=== PATIENT | female | born 1940 | race Caucasian/White ===

== ENCOUNTER → 2016-10-06 | Outpatient (CLI) | payer MEDICARE, OTHER | LOC: RAD 09:02 | PROVIDERS: ATTEND Physician Assistant | DX: M51.36 Other intervertebral disc degeneration, lumbar region (principal); G89.4 Chronic pain syndrome | CPT/HCPCS: 78306; A9503; Q9969 ==

== ENCOUNTER 2017-05-18 10:46 | Emergency (ER) | payer MEDICARE, OTHER ==
[2017-05-18] MEDS ORDERED: VERAPAMIL HCL 80 MG TABLET PO ONE (11:39)
--- NOTE | 2017-05-18 11:45 | ER Document Report ---
ED Medical Screen (RME) - General Chief Complaint: Palpitations Stated Complaint: ABNORMAL LABS Time Seen by Provider: 05/18/17 11:05 Mode of Arrival: Ambulatory Information source: Patient TRAVEL OUTSIDE OF THE [place] IN LAST 30 DAYS: No - HPI Patient complains to provider of: Palpitations since a change in her prescription. Onset: Other - Palpitations for 2 weeks since a change in her prescription. Worse the past 2 days. Onset/Duration: Gradual Quality of pain: No pain Exacerbated by: denies: Denies, Supine, Sitting, Standing, Movement, Walking, Coughing, Deep breathing, Food, Other Relieved by: denies: Denies, Supine, Sitting, Standing, Remaining still, Antacids, Food, Other Similar symptoms previously: Yes - Related Data Smoking: Non-smoker Frequency of alcohol use: None Allergies/Adverse Reactions: lidocaine [Lidocaine] Allergy (Severe, Verified 05/18/17 10:48) IV only causes an unknown severe reaction disopyramide phosphate [From Norpace] Allergy (Unknown, Verified 05/18/17 10:48) Unknown reaction acetaminophen [From Tylenol] Allergy (Verified 05/18/17 10:48) azithromycin [Azithromycin] Allergy (Verified 05/18/17 10:48) diphenhydramine HCl [From Benadryl] Allergy (Verified 05/18/17 10:48) erythromycin base [Erythromycin Base] Allergy (Verified 05/18/17 10:48) quinidine Allergy (Verified 05/18/17 10:48) Sulfa (Sulfonamide Antibiotics) Allergy (Verified 05/18/17 10:48) simvastatin [Simvastatin] Adverse Reaction (Mild, Verified 05/18/17 10:48) elev lft's; myopathy Past Medical History - Social History Cigarette use (# per day): No Chew tobacco use (# tins/day): No Frequency of alcohol use: None Drug Abuse: None - Past Medical History Cardiac Medical History: Reports: Hx Atrial Fibrillation, Hx Hypercholesterolemia Denies: Hx Coronary Artery Disease, Hx Heart Attack, Hx Hypertension Pulmonary Medical History: Denies: Hx Asthma, Hx Bronchitis, Hx COPD, Hx Pneumonia Neurological Medical History: Denies: Hx Cerebrovascular Accident, Hx Seizures Renal/ Medical History: Denies: Hx Peritoneal Dialysis GI Medical History: Reports: Hx Gastroesophageal Reflux Disease, Hx Hepatitis - c, Hx Colonoscopy Musculoskeltal Medical History: Reports Hx Arthritis - Osteo, Reports Hx Musculoskeletal Deformity, Reports Hx Musculoskeletal Trauma Psychiatric Medical History: Reports: Hx Anxiety Traumatic Medical History: Reports: Hx Fractures, Hx Spine Fracture - low back Infectious Medical History: Reports: Hx Hepatitis - c Past Surgical History: Reports: Hx Appendectomy, Hx Cardiac Catheterization, Hx Inguinal Hernia, Hx Orthopedic Surgery - left elbow fx, bilat feet fx - Immunizations Immunizations up to date: Yes Hx Diphtheria, Pertussis, Tetanus Vaccination: No History of Influenza Vaccine for 05/2017 - 10/2017 Season: No Review of Systems - Review of Systems Notes: Constitutional: [PRESENT: as per HPI. ABSENT: chills, fever(s), headache(s), weight gain, weight loss] Eyes: [ABSENT: visual disturbances] Ears: [ABSENT: hearing changes] Cardiovascular: [ABSENT: chest pain, dyspnea on exertion, edema, orthropnea] positive for palpitations. See HPI Respiratory: [ABSENT: cough, hemoptysis] Gastrointestinal: [ABSENT: abdominal pain, constipation, diarrhea, hematemesis, hematochezia, nausea, vomiting] Genitourinary: [ABSENT: dysuria, hematuria] Musculoskeletal: [ABSENT: joint swelling] Integumentary: [ABSENT: rash, wounds] Neurological: [ABSENT: abnormal gait, abnormal speech, confusion, dizziness, focal weakness, syncope] Psychiatric: [ABSENT: anxiety, depression, homicidal ideation, suicidal ideation ] Endocrine: [ABSENT: cold intolerance, heat intolerance, menstrual abnormalities , polydipsia, polyuria] Hematologic/Lymphatic: [ABSENT: easy bleeding, easy bruising, lymphadenopathy] Cardiovascular: See HPI, Palpitations - See HPI Physical Exam - Vital signs Vitals: Temp Pulse Resp BP Pulse Ox 98.1 F 119 H 16 147/71 H 99 05/18/17 10:52 05/18/17 10:52 05/18/17 10:52 05/18/17 10:52 05/18/17 10:52 - Notes Notes: PHYSICAL EXAMINATION: GENERAL: Well-appearing, well-nourished and in no acute distress. HEAD: Atraumatic, normocephalic. ENT: Nares patent, oropharynx clear without exudates. Moist mucous membranes. NECK: Normal range of motion, supple without lymphadenopathy LUNGS: Breath sounds clear to auscultation bilaterally and equal. No wheezes rales or rhonchi. HEART: Tachycardic at a rate of 120. ABDOMEN: Soft, nontender, nondistended abdomen. No guarding, no rebound. No masses appreciated. Musculoskeletal: Normal range of motion, no pitting or edema. No cyanosis. NEUROLOGICAL: Cranial nerves grossly intact. Normal speech, normal gait. Normal sensory, motor exams PSYCH: Normal mood, normal affect. SKIN: Warm, Dry, no rashes or lesions noted. Course - Vital Signs Vital signs: Temp Pulse Resp BP Pulse Ox 98.1 F 119 H 16 147/71 H 99 05/18/17 10:52 05/18/17 10:52 05/18/17 10:52 05/18/17 10:52 05/18/17 10:52 - EKG Interpretation by Mt Rate: Tachycardia - Sinus tachycardia at a rate of 113 with a sinus arrhythmia.
[2017-05-18 12:25] LABS: ABSOLUTE BASOPHILS # (AUTO) 0.1 10^3/uL (0.0-0.2); ABSOLUTE LYMPHOCYTES (AUTO) 1.2 10^3/uL (0.5-4.7); ABSOLUTE MONOCYTES (AUTO) 0.5 10^3/uL (0.1-1.4); ABSOLUTE NEUT (AUTO) 4.8 10^3/uL (1.7-8.2); BASOPHILS % (AUTO) 0.8 % (0-2); EOSINOPHILS % (AUTO) 0.7 % (0-6); HEMATOCRIT 39.4 % (36.0-47.0); HEMOGLOBIN 13.5 g/dL (12.0-15.5); HGB HCT DIFFERENCE 1.1; LYMPHOCYTES % (AUTO) 18.6 % (13-45); MEAN CORPUSCULAR HEMOGLOBIN 34.5 pg (27.0-33.4); MEAN CORPUSCULAR HGB CONC 34.4 g/dL (32.0-36.0); MEAN CORPUSCULAR VOLUME 100 fl (80-97); MONOCYTES % (AUTO) 7.3 % (3-13); RED BLOOD COUNT 3.93 10^6/uL (3.72-5.28); RED CELL DISTRIBUTION WIDTH 12.9 % (11.5-14.0); SEGMENTED NEUTROPHILS % (AUTO) 72.6 % (42-78); WHITE BLOOD COUNT 6.7 10^3/uL (4.0-10.5)
[2017-05-18 12:45] LABS: ALANINE AMINOTRANSFERASE 37 U/L (9-52); ALBUMIN 4.3 g/dL (3.5-5.0); ALKALINE PHOSPHATASE 79 U/L (38-126); ANION GAP 16 (5-19); ASPARTATE AMINO TRANSFERASE 38 U/L (14-36); BILIRUBIN,DIRECT 0.4 mg/dL (0.0-0.4); BILIRUBIN,TOTAL 0.8 mg/dL (0.2-1.3); BLOOD UREA NITROGEN 10 mg/dL (7-20); CALCIUM 9.5 mg/dL (8.4-10.2); CARBON DIOXIDE 23 mmol/L (22-30); CHLORIDE 101 mmol/L (98-107); CREATININE RESULT 0.67 mg/dL (0.52-1.25); GLUCOSE 113 mg/dL (75-110); POTASSIUM 4.2 mmol/L (3.6-5.0); SODIUM 139.5 mmol/L (137-145); TOTAL PROTEIN 7.7 g/dL (6.3-8.2)
--- NOTE | 2017-05-18 12:55 | EKG REPORT ---
SEVERITY:- BORDERLINE ECG - FAST SINUS ARRHYTHMIA, RATE 93-[address] DEPRESSION, ANTEROLATERAL LEADS : Confirmed by: Thien Sharpe MD 18-May-2017 12:54:32
--- NOTE | 2017-05-18 14:38 | ER Document Report ---
ED Cardiac - General Chief Complaint: Palpitations Stated Complaint: ABNORMAL LABS Time Seen by Provider: 05/18/17 11:05 Mode of Arrival: Ambulatory Information source: Patient TRAVEL OUTSIDE OF THE [place] IN LAST 30 DAYS: No - HPI Patient complains to provider of: Palpitations Was the onset of pain: Sudden Is the pain a: Chronic problem Quality of pain: None Associated symptoms: Palpitations Similar symptoms previously: Yes Notes: Patient is a 76-year-old female with a history of paroxysmal atrial fibrillation presenting to the emergency room today complaining of palpitations which have been increasing in frequency and duration over the past week, she does report when she recently filled her prescription for Rythmol she got the generic version as the name brand is no longer available and she is concerned that this is possibly why she is having increased episodes of palpitations, she denies any chest pain or shortness of breath associated with them, she has a note from her window dresser which requests that she be given a dose of verapamil 40 mg prior to any other medications, which she got in the triage area and her heart rate is now in the 70 range and she reports feeling much better - Related Data Allergies/Adverse Reactions: lidocaine [Lidocaine] Allergy (Severe, Verified 05/18/17 10:48) IV only causes an unknown severe reaction disopyramide phosphate [From Norpace] Allergy (Unknown, Verified 05/18/17 10:48) Unknown reaction acetaminophen [From Tylenol] Allergy (Verified 05/18/17 10:48) azithromycin [Azithromycin] Allergy (Verified 05/18/17 10:48) diphenhydramine HCl [From Benadryl] Allergy (Verified 05/18/17 10:48) erythromycin base [Erythromycin Base] Allergy (Verified 05/18/17 10:48) quinidine Allergy (Verified 05/18/17 10:48) Sulfa (Sulfonamide Antibiotics) Allergy (Verified 05/18/17 10:48) simvastatin [Simvastatin] Adverse Reaction (Mild, Verified 05/18/17 10:48) elev lft's; myopathy Past Medical History - General Information source: Patient - Social History Smoking Status: Never Smoker Cigarette use (# per day): No Chew tobacco use (# tins/day): No Frequency of alcohol use: None Drug Abuse: None Family History: CAD, Hyperlipidemia, Hypertension - Past Medical History Cardiac Medical History: Reports: Hx Atrial Fibrillation, Hx Hypercholesterolemia Denies: Hx Coronary Artery Disease, Hx Heart Attack, Hx Hypertension Pulmonary Medical History: Denies: Hx Asthma, Hx Bronchitis, Hx COPD, Hx Pneumonia Neurological Medical History: Denies: Hx Cerebrovascular Accident, Hx Seizures Renal/ Medical History: Denies: Hx Peritoneal Dialysis GI Medical History: Reports: Hx Gastroesophageal Reflux Disease, Hx Hepatitis - c, Hx Colonoscopy Musculoskeltal Medical History: Reports Hx Arthritis - Osteo, Reports Hx Musculoskeletal Deformity, Reports Hx Musculoskeletal Trauma Psychiatric Medical History: Reports: Hx Anxiety Traumatic Medical History: Reports: Hx Fractures, Hx Spine Fracture - low back Infectious Medical History: Reports: Hx Hepatitis - c Past Surgical History: Reports: Hx Appendectomy, Hx Cardiac Catheterization, Hx Inguinal Hernia, Hx Orthopedic Surgery - left elbow fx, bilat feet fx - Immunizations Immunizations up to date: Yes Hx Diphtheria, Pertussis, Tetanus Vaccination: No Review of Systems - Review of Systems Constitutional: No symptoms reported EENT: No symptoms reported Cardiovascular: See HPI Respiratory: No symptoms reported Gastrointestinal: No symptoms reported Genitourinary: No symptoms reported Female Genitourinary: No symptoms reported Musculoskeletal: No symptoms reported Skin: No symptoms reported Hematologic/Lymphatic: No symptoms reported Neurological/Psychological: No symptoms reported -: Yes All other systems reviewed and negative Physical Exam - Vital signs Vitals: Temp Pulse Resp BP Pulse Ox 98.1 F 119 H 16 147/71 H 99 05/18/17 10:52 05/18/17 10:52 05/18/17 10:52 05/18/17 10:52 05/18/17 10:52 Interpretation: Normal - General General appearance: Appears well, Alert - HEENT Head: Normocephalic, Atraumatic Eyes: Normal Pupils: PERRL - Respiratory Respiratory status: No respiratory distress Chest status: Nontender Breath sounds: Normal Chest palpation: Normal - Cardiovascular Rhythm: Regular Heart sounds: Normal auscultation Murmur: No - Abdominal Inspection: Normal Distension: No distension Bowel sounds: Normal Tenderness: Nontender Organomegaly: No organomegaly - Back Back: Normal, Nontender - Extremities General upper extremity: Normal inspection, Nontender, Normal color, Normal ROM , Normal temperature General lower extremity: Normal inspection, Nontender, Normal color, Normal ROM , Normal temperature, Normal weight bearing. No: Fei's sign - Neurological Neuro grossly intact: Yes Cognition: Normal Orientation: AAOx4 [place] Coma Scale Eye Opening: Spontaneous [place] Coma Scale Verbal: Oriented [place] Coma Scale Motor: Obeys Commands [place] Coma Scale Total: 15 Speech: Normal Motor strength normal: LUE, RUE, LLE, RLE Sensory: Normal - Psychological Associated symptoms: Anxious - Skin Skin Temperature: Warm Skin Moisture: Dry Skin Color: Normal Course - Re-evaluation Re-evalutation: 05/18/17 14:38 Patient was discussed with Dr. Sanchez window dresser who recommends patient continue her current meds with the addition of verapamil 40 mg twice a day, he requests that patient call his office on Sunday to set up a follow-up appointment, this plan was discussed with patient at bedside who acknowledges understanding and agreement - Vital Signs Vital signs: Temp Pulse Resp BP Pulse Ox 98.1 F 119 H 20 147/71 H 97 05/18/17 10:52 05/18/17 10:52 05/18/17 14:02 05/18/17 10:52 05/18/17 14:02 - Laboratory Result Diagrams: 05/18/17 12:08 05/18/17 12:08 Laboratory results interpreted by me: 05/18/17 05/18/17 12:08 12:08 MCV 100 H MCH 34.5 H Plt Count 148 L Glucose 113 H AST 38 H - EKG Interpretation by [place] EKG shows normal: Sinus rhythm Rate: Tachycardia Rhythm: Arrthymia Additional EKG results interpreted by me: 05/18/17 15:10 Repeat EKG is normal sinus rhythm at a rate of 68 Discharge - Discharge Clinical Impression: Anxiety, Palpitations Atrial fibrillation Qualifiers: Atrial fibrillation type: paroxysmal Qualified Code(s): I48.0 - Paroxysmal atrial fibrillation Condition: Stable Disposition: HOME, SELF-CARE Instructions: Palpitations (Irregular or Rapid Heartrate) (OM) Additional Instructions: Follow up with your window dresser on Sunday. Call to make an appointment. Return to the emergency room immediately if symptoms worsen or any additional concerns.
[2017-05-18 15:12] VITALS: BP 154/75
--- NOTE | 2017-05-18 18:23 | EKG REPORT ---
SEVERITY:- NORMAL ECG - SINUS RHYTHM : Confirmed by: Thien Sharpe MD 18-May-2017 18:22:54
== END 2017-05-18 15:05 | disposition home or self-care (01) ==
LOC: ER 10:46
DX: R00.2 Palpitations (principal); F41.9 Anxiety disorder, unspecified; I48.0 Paroxysmal atrial fibrillation; E78.00 Pure hypercholesterolemia, unspecified; Z88.2 Allergy status to sulfonamides; Z88.3 Allergy status to other anti-infective agents; Z86.19 Personal history of other infectious and parasitic diseases
CPT/HCPCS: 93005; 99285; 36415; 85025; 80053; 84484; 93010; A9270; J3490

== ENCOUNTER 2017-06-13 11:38 | Observation (INO) | payer MEDICARE, OTHER ==
--- NOTE | 2017-06-13 11:42 | ER Document Report ---
ED Medical Screen (RME) - General Stated Complaint: POSSIBLE STROKE Notes: Patient sent from primary care doctor's office. Patient was having trouble forming words this morning. It is now better per family. TRAVEL OUTSIDE OF THE [place] IN LAST 30 DAYS: No - Related Data Allergies/Adverse Reactions: lidocaine [Lidocaine] Allergy (Severe, Verified 05/18/17 10:48) IV only causes an unknown severe reaction disopyramide phosphate [From Norpace] Allergy (Unknown, Verified 05/18/17 10:48) Unknown reaction acetaminophen [From Tylenol] Allergy (Verified 05/18/17 10:48) azithromycin [Azithromycin] Allergy (Verified 05/18/17 10:48) diphenhydramine HCl [From Benadryl] Allergy (Verified 05/18/17 10:48) erythromycin base [Erythromycin Base] Allergy (Verified 05/18/17 10:48) quinidine Allergy (Verified 05/18/17 10:48) Sulfa (Sulfonamide Antibiotics) Allergy (Verified 05/18/17 10:48) simvastatin [Simvastatin] Adverse Reaction (Mild, Verified 05/18/17 10:48) elev lft's; myopathy Past Medical History - Past Medical History Cardiac Medical History: Reports: Hx Atrial Fibrillation, Hx Hypercholesterolemia Denies: Hx Coronary Artery Disease, Hx Heart Attack, Hx Hypertension Pulmonary Medical History: Denies: Hx Asthma, Hx Bronchitis, Hx COPD, Hx Pneumonia Neurological Medical History: Denies: Hx Cerebrovascular Accident, Hx Seizures Renal/ Medical History: Denies: Hx Peritoneal Dialysis GI Medical History: Reports: Hx Gastroesophageal Reflux Disease, Hx Hepatitis - c, Hx Colonoscopy Musculoskeltal Medical History: Reports Hx Arthritis - Osteo, Reports Hx Musculoskeletal Deformity, Reports Hx Musculoskeletal Trauma Psychiatric Medical History: Reports: Hx Anxiety Traumatic Medical History: Reports: Hx Fractures, Hx Spine Fracture - low back Infectious Medical History: Reports: Hx Hepatitis - c Past Surgical History: Reports: Hx Appendectomy, Hx Cardiac Catheterization, Hx Inguinal Hernia, Hx Orthopedic Surgery - left elbow fx, bilat feet fx - Immunizations Immunizations up to date: Yes Hx Diphtheria, Pertussis, Tetanus Vaccination: No History of Influenza Vaccine for 05/2017 - 10/2017 Season: No
--- NOTE | 2017-06-13 11:59 | RADIOLOGY REPORT (SQ) ---
EXAM DESCRIPTION: CT HEAD WITHOUT COMPLETED DATE/TIME: 06/13/2017 11:46 am REASON FOR STUDY: trouble speaking COMPARISON: None. TECHNIQUE: Axial images acquired through the brain without intravenous contrast. Images reviewed wi th bone, brain and subdural windows. Images stored on PACS. All CT scanners at this facility use dose modulation, iterative reconstruction, and/or weight based d osing when appropriate to reduce radiation dose to as low as reasonably achievable (ALARA). [facility]: Dose Right [facility]: CareDose [facility]: Dose Right [facility]: Teradose 4D [facility]: Smart [employer] RADIATION DOSE: Up-to-date CT equipment and radiation dose reduction techniques were employed. CTDIv ol: 63.6 mGy. DLP: 1163 mGy-cm. mGy. LIMITATIONS: None. FINDINGS: VENTRICLES: Normal size and contour. CEREBRUM: No masses. No hemorrhage. No midline shift. No evidence for acute infarction. Normal gra y/white matter differentiation. No areas of low density in the white matter. CEREBELLUM: No masses. No hemorrhage. No alteration of density. No evidence for acute infarction. EXTRAAXIAL SPACES: No fluid collections. No masses. ORBITS AND GLOBE: No intra- or extraconal masses. Normal contour of globe without masses. CALVARIUM: No fracture. PARANASAL SINUSES: No fluid or mucosal thickening. SOFT TISSUES: No mass or hematoma. OTHER: No other significant finding. IMPRESSION: NORMAL BRAIN CT WITHOUT CONTRAST. EVIDENCE OF ACUTE STROKE: NO. COMMENT: Pertinent positive or negative findings of the imaging study reported as a CRITICAL EXAM carie VILLAR MD at11:51 on 06/13/2017. Category of Critical Exam: Stroke alert Quality ID # [id number]: Final reports with documentation of one or more dose reduction techniques (e.g., Au tomated exposure control, adjustment of the mA and/or kV according to patient size, use of iterative reconstruction technique) TECHNICAL DOCUMENTATION: JOB ID: [id number] [employer]- All Rights Reserved
--- NOTE | 2017-06-13 12:55 | RADIOLOGY REPORT (SQ) ---
EXAM DESCRIPTION: CHEST SINGLE VIEW COMPLETED DATE/TIME: 06/13/2017 12:48 pm REASON FOR STUDY: trouble speaking COMPARISON: 06/30/2016 EXAM PARAMETERS: NUMBER OF VIEWS: One view. TECHNIQUE: Single frontal radiographic view of the chest acquired. RADIATION DOSE: NA LIMITATIONS: None. FINDINGS: LUNGS AND PLEURA: The lungs are hyperexpanded. There are no infiltrates or effusions. MEDIASTINUM AND HILAR STRUCTURES: No masses. Contour normal. HEART AND VASCULAR STRUCTURES: Heart normal in size. Normal vasculature. BONES: No acute findings. HARDWARE: Pacemaker. OTHER: No other significant finding. IMPRESSION: Chronic lung changes with no acute cardiopulmonary disease. TECHNICAL DOCUMENTATION: JOB ID: [id number]- All Rights Reserved
--- NOTE | 2017-06-13 13:10 | ER Document Report ---
ED Neuro Symptoms/Deficit - General Chief Complaint: S/S of Possible Stroke Stated Complaint: POSSIBLE STROKE Time Seen by Provider: 06/13/17 11:49 Notes: Patient began experiencing some slurring of her speech along with feeling dizzy and a slight bit uncertain on her feet about 8:00 this morning. It has been intermittent and better now, although family says she still sounds like she is very slightly slurring her speech. She did not have any difficulty with using any of her limbs and is been able to walk. She went to her local mathematics instructor, Dr. Summers, and they were concerned that she might be having a stroke so they sent her here for evaluation. Patient just got out of [facility] [place] after having had a pacemaker put in her left chest. She came home Sunday. She is on a very long list of medications, some of them capable of causing her symptoms and the patient feels that metoprolol 50 mg XL that she took this morning for the first time may be the culprit. She has been on this medication for just a few days, but been taking it at night and not during the daytime. In addition, this morning, patient also took 150 mg of Rythmol, oxycodone 5 mg, and lorazepam 1 mg. Patient denies any headache. Denies nausea or vomiting. Denies any chest pain , shortness of breath or difficulty breathing, fevers, etc. Patient went to Dr. Summers's office and when discharge, they gave her Eliquis to start taking 5 mg twice a day. TRAVEL OUTSIDE OF THE [place] IN LAST 30 DAYS: No - Related Data Allergies/Adverse Reactions: lidocaine [Lidocaine] Allergy (Severe, Verified 06/13/17 12:35) IV only causes an unknown severe reaction disopyramide phosphate [From Norpace] Allergy (Unknown, Verified 06/13/17 12:35) Unknown reaction acetaminophen [From Tylenol] Allergy (Verified 06/13/17 12:35) azithromycin [Azithromycin] Allergy (Verified 06/13/17 12:35) diphenhydramine HCl [From Benadryl] Allergy (Verified 06/13/17 12:35) erythromycin base [Erythromycin Base] Allergy (Verified 06/13/17 12:35) quinidine Allergy (Verified 06/13/17 12:35) Sulfa (Sulfonamide Antibiotics) Allergy (Verified 06/13/17 12:35) simvastatin [Simvastatin] Adverse Reaction (Mild, Verified 06/13/17 12:35) elev lft's; myopathy Home Medications: Current Home Medications Guaifenesin [Mucinex] 600 mg PO BID 06/13/17 [History] Ibuprofen 400 mg PO Q4HP PRN 06/13/17 [History] Lidocaine [Lidoderm] 2 each TP Q12 06/13/17 [History] Lorazepam [Ativan 1 mg Tablet] 1 mg PO Q8 06/13/17 [History] Meclizine HCl [Antivert 25 mg Tablet] 25 mg PO TIDP PRN 06/13/17 [History] Metoprolol Succinate [Toprol Xl 50 mg Tab.sr] 50 mg PO DAILY 06/13/17 [History] Oxycodone HCl [Oxy-Ir 5 mg Tablet] 5 mg PO Q4HP PRN 06/13/17 [History] Polyethylene Glycol 3350 [Miralax Powder 17 gm/Packet] 1 packet PO DAILYP PRN [History] Propafenone HCl [Rythmol 150 Mg Tablet] 150 mg PO Q8 06/13/17 [History] Triazolam 0.375 mg PO HSP PRN 06/13/17 [History] Past Medical History - Social History Smoking Status: Unknown if Ever Smoked Cigarette use (# per day): No Family History: Reviewed & Not Pertinent, CAD, Hyperlipidemia, Hypertension Patient has suicidal ideation: No Patient has homicidal ideation: No - Past Medical History Cardiac Medical History: Reports: Hx Atrial Fibrillation, Hx Hypercholesterolemia, Other - New pacemaker. Neurological Medical History: Denies: Hx Cerebrovascular Accident GI Medical History: Reports: Hx Gastroesophageal Reflux Disease, Hx Hepatitis - c, Hx Colonoscopy Musculoskeltal Medical History: Reports Hx Arthritis - Osteo, Reports Hx Musculoskeletal Deformity, Reports Hx Musculoskeletal Trauma Psychiatric Medical History: Reports: Hx Anxiety Traumatic Medical History: Reports: Hx Fractures, Hx Spine Fracture - low back Infectious Medical History: Reports: Hx Hepatitis - c Past Surgical History: Reports: Hx Appendectomy, Hx Cardiac Catheterization, Hx Inguinal Hernia, Hx Orthopedic Surgery - left elbow fx, bilat feet fx - Immunizations Immunizations up to date: Yes Hx Diphtheria, Pertussis, Tetanus Vaccination: No Review of Systems - Review of Systems Notes: REVIEW OF SYSTEMS: CONSTITUTIONAL : Denies fever. Denies loss of consciousness. EENT: Denies eye, ear, nose or mouth or throat pain or other symptoms. CARDIOVASCULAR: Denies chest pain. RESPIRATORY: Denies cough, chest congestion, or shortness of breath. GASTROINTESTINAL: Denies abdominal pain or nausea, vomiting, or diarrhea. GENITOURINARY: Denies difficulty or painful urinating, urinary frequency, blood in urine. MUSCULOSKELETAL: Denies back or neck pain. Denies joint pain or swelling. SKIN: Denies rash or skin lesions. NEUROLOGICAL: See HPI. Denies LOC or altered mental status. Denies headache. Denies sensory loss or motor deficits. ALL OTHER SYSTEMS REVIEWED AND NEGATIVE. Physical Exam - Vital signs Vitals: Pulse Resp BP Pulse Ox 68 20 139/73 H 100 06/13/17 11:46 06/13/17 11:46 06/13/17 11:46 06/13/17 11:46 Interpretation: Normal - Notes Notes: PHYSICAL EXAMINATION: GENERAL: Well-appearing, in no acute distress. Can ambulate with minimal or no difficulty. Very talkative. Speech may be very slightly slurred. HEAD: Atraumatic, normocephalic. I do not note any facial asymmetry, though family thinks there may be a slight bit of drooping to her face. EYES: Pupils equal round and reactive to light, extraocular movements intact. ENT: oropharynx clear without exudates. Moist mucous membranes. NECK: Normal range of motion, supple. No carotid bruits. LUNGS: Breath sounds clear and equal bilaterally. HEART: Irregular sounding rhythm without murmurs. ABDOMEN: Soft, nontender. No guarding or rebound. BACK: No tenderness throughout entire back. EXTREMITIES: Normal range of motion without pain. NEUROLOGICAL: Speech may be the slightest bit slurred which could be due to a neurological condition such as a stroke or could be related to medications taken this morning. Patient is able to ambulate and does not appear to require assistance. Normal sensory, motor, and reflex exams. Awake, alert, and oriented x3. Cranial nerves normal. Family thinks there may be a slight bit of drooping to her face PSYCH: Normal mood, normal affect. SKIN: Warm, dry, no rashes. Course - Re-evaluation Re-evalutation: 06/13/17 14:26 All patient's lab studies have come back essentially normal. CT scan did not show anything acute. Spoke with hospitalist, Dr. Solomon, and patient will be observed on telemetry. Patient has remained stable throughout her stay in the department. - Vital Signs Vital signs: Temp Pulse Resp BP Pulse Ox 97.8 F 68 15 136/53 H 100 06/13/17 13:52 06/13/17 11:46 06/13/17 14:01 06/13/17 14:00 06/13/17 14:01 - Laboratory Result Diagrams: 06/13/17 13:10 06/13/17 13:10 Laboratory results interpreted by me: 06/13/17 06/13/17 13:10 13:10 RBC 3.63 L MCV 99 H Plt Count 120 L Glucose 120 H - Diagnostic Test Radiology reviewed: Image reviewed, Reports reviewed - CT scan of the brain is negative. Critical Care Note - Critical Care Note Total time excluding time spent on procedures (mins): 20 Discharge - Discharge Clinical Impression: TIA (transient ischemic attack), Medication side effect Condition: Stable Disposition: ADMITTED OBSERVATION Admitting Provider: Hospitalist Unit Admitted: Telemetry
[2017-06-13 13:21] LABS: ABSOLUTE EOSINOPHILS # (AUTO) 0.1 10^3/uL (0.0-0.6); ABSOLUTE LYMPHOCYTES (AUTO) 1.5 10^3/uL (0.5-4.7); ABSOLUTE MONOCYTES (AUTO) 0.7 10^3/uL (0.1-1.4); ABSOLUTE NEUT (AUTO) 3.8 10^3/uL (1.7-8.2); BASOPHILS % (AUTO) 0.8 % (0-2); EOSINOPHILS % (AUTO) 1.2 % (0-6); HEMOGLOBIN 12.1 g/dL (12.0-15.5); HGB HCT DIFFERENCE 0.3; LYMPHOCYTES % (AUTO) 24.5 % (13-45); MEAN CORPUSCULAR HEMOGLOBIN 33.4 pg (27.0-33.4); MEAN CORPUSCULAR HGB CONC 33.7 g/dL (32.0-36.0); MEAN CORPUSCULAR VOLUME 99 fl (80-97); MONOCYTES % (AUTO) 10.9 % (3-13); RED BLOOD COUNT 3.63 10^6/uL (3.72-5.28); RED CELL DISTRIBUTION WIDTH 12.9 % (11.5-14.0); SEGMENTED NEUTROPHILS % (AUTO) 62.6 % (42-78)
[2017-06-13 13:31] LABS: PROTHROMBIN TIME 13.7 SEC (11.4-15.4)
[2017-06-13 13:43] LABS: ALANINE AMINOTRANSFERASE 34 U/L (9-52); ALBUMIN 3.9 g/dL (3.5-5.0); ALKALINE PHOSPHATASE 85 U/L (38-126); ANION GAP 13 (5-19); ASPARTATE AMINO TRANSFERASE 29 U/L (14-36); BILIRUBIN,DIRECT 0.3 mg/dL (0.0-0.4); BILIRUBIN,TOTAL 0.7 mg/dL (0.2-1.3); BLOOD UREA NITROGEN 14 mg/dL (7-20); CALCIUM 9.2 mg/dL (8.4-10.2); CARBON DIOXIDE 25 mmol/L (22-30); CHLORIDE 105 mmol/L (98-107); CREATINE KINASE 37 U/L (30-135); CREATININE RESULT 0.81 mg/dL (0.52-1.25); GLUCOSE 120 mg/dL (75-110); POTASSIUM 4.7 mmol/L (3.6-5.0); SODIUM 142.8 mmol/L (137-145); TOTAL PROTEIN 7.2 g/dL (6.3-8.2)
--- NOTE | 2017-06-13 13:44 | EKG REPORT ---
SEVERITY:- ABNORMAL ECG - ATRIAL-PACED COMPLEXES AND PACS BORDERLINE T ABNORMALITIES, ANTERIOR LEADS BORDERLINE PROLONGED QT INTERVAL : Confirmed by: Thien Sharpe MD 13-Jun-2017 13:44:25
[2017-06-13 13:55] LABS: CREATINE KINASE MB 0.92 ng/mL (<4.55); TROPONIN I 0.014 ng/mL
[2017-06-13] MEDS ORDERED: TRAMADOL HCL 50 MG TABLET PO PRN (15:52)
[2017-06-13] MEDS ORDERED: LABETALOL HCL INJ 20 MG/4 ML DISP.SYRIN IV PRN (15:52)
[2017-06-13] MEDS ORDERED: DOCUSATE SODIUM 100 MG CAPSULE PO PRN (15:52)
[2017-06-13] MEDS ORDERED: MAGNESIUM HYDROXIDE SUSP 30 ML UDCUP PO PRN (15:52)
[2017-06-13] MEDS ORDERED: LORAZEPAM 1 MG TABLET PO PRN (16:10)
--- NOTE | 2017-06-13 16:57 | PDOC H&P ---
History of Present Illness Admission Date/PCP: 06/13/17 15:11 MELVIN SUMMERS History of Present Illness: ERICKSON BURR is a 76 year old female presented to the ED today with report of stroke-like symptoms that occurred early this morning. She is seen resting on the ED stretcher comfortably with family members present. Pt reports that she woke at approximately 6 am to take some of her medications; rhythmol, ativan and aspirin. She states at that time she felt fine and did not note facial droop, slurred speech or weakness. She went back to sleep and woke again around 8 am and took oxycodone and mucinex. She states that within a few minutes of taking these medications, she experienced generalized weakness and dizziness. She attempted to contact her pacemaker company for a rhythm check but the media sales representative could not understand her. She then alerted her who reports that the pt had delayed and slurred speech. He did not note any confusion, facial droop, or focal weaknesses at that time. They then contacted Dr. Summers's office for guidance and were instructed to seek evaluation in the ED. Currently, pt reports feeling slightly fatigued and does comment on a slight slurred speech which her endorses. She denies bean, dizziness, extremity weakness, chest pain, palpitations, and dyspnea. Of note, pt was discharged home from [facility] 5 days ago after having a pacemaker put in and was started on Eliquis. Pt states that she was instructed to stop her ASA at that time and so had not had any up until this morning when she took a dose "out of habit." She has been referred to the hospitalist service for TIA/CVA work up. Past Medical History Cardiac Medical History: Reports: Atrial Fibrillation, Hyperlipidema, Other - New pacemaker. Denies: Coronary Artery Disease, Myocardial Infarction, Hypertension Pulmonary Medical History: Denies: Asthma, Bronchitis, Chronic Obstructive Pulmonary Disease (COPD), Pneumonia EENT Medical History: Reports: None Neurological Medical History: Denies: Hemorrhagic CVA, Ischemic CVA, Seizures Endocrine Medical History: Reports: None Renal/ Medical History: Reports: None Malignancy Medical History: Reports: None GI Medical History: Reports: Gastroesophageal Reflux Disease, Hepatitis - c Musculoskeltal Medical History: Reports: Arthritis - Osteo Psychiatric Medical History: Reports: General Anxiety Disorder Hematology: Reports: Anemia - 25 yrs ago Past Surgical History Past Surgical History: Reports: Appendectomy, Cardiac Catheterization, Orthopedic Surgery - left elbow fx, bilat feet fx Social History Information Source: Patient, Relative Lives with: Spouse/Significant other Smoking Status: Never Smoker Frequency of Alcohol Use: None Hx Recreational Drug Use: No - Advance Directive Resuscitation Status: Full Code Family History Family History: Reviewed & Not Pertinent, CAD, Hyperlipidemia, Hypertension Parental Family History Reviewed: Yes Children Family History Reviewed: Yes Sibling(s) Family History Reviewed.: Yes Medication/Allergy Home Medications: Aspirin [Aspirin 81 mg Chewable Tablet] 81 mg PO DAILY 06/13/17 Estrogens,Conjugated [Premarin Vaginal Cream (0.625 mg/gm) 30 gm] 1 applic VG ASDIR PRN 06/13/17 Guaifenesin [Mucinex] 600 mg PO BID 06/13/17 Ibuprofen 400 mg PO Q4HP PRN 06/13/17 Lidocaine [Lidoderm] 2 each TP Q12 06/13/17 Lorazepam [Ativan 1 mg Tablet] 1 mg PO Q8 06/13/17 Meclizine HCl [Antivert 25 mg Tablet] 25 mg PO TIDP PRN 06/13/17 Metoprolol Succinate [Toprol Xl 50 mg Tab.sr] 50 mg PO DAILY 06/13/17 Oxycodone HCl [Oxy-Ir 5 mg Tablet] 5 mg PO Q4HP PRN 06/13/17 Polyethylene Glycol 3350 [Miralax Powder 17 gm/Packet] 1 packet PO DAILYP PRN Propafenone HCl [Propafenone HCl ER] 425 mg PO Q12 06/13/17 Triazolam 0.375 mg PO HSP PRN 06/13/17 Valacyclovir HCl [Valacyclovir] 500 mg PO BID 06/13/17 Allergies/Adverse Reactions: lidocaine [Lidocaine] Allergy (Severe, Verified 06/13/17 12:35) IV only causes an unknown severe reaction disopyramide phosphate [From Norpace] Allergy (Unknown, Verified 06/13/17 12:35) Unknown reaction acetaminophen [From Tylenol] Allergy (Verified 06/13/17 12:35) azithromycin [Azithromycin] Allergy (Verified 06/13/17 12:35) diphenhydramine HCl [From Benadryl] Allergy (Verified 06/13/17 12:35) erythromycin base [Erythromycin Base] Allergy (Verified 06/13/17 12:35) quinidine Allergy (Verified 06/13/17 12:35) Sulfa (Sulfonamide Antibiotics) Allergy (Verified 06/13/17 12:35) simvastatin [Simvastatin] Adverse Reaction (Mild, Verified 06/13/17 12:35) elev lft's; myopathy Review of Systems Constitutional: PRESENT: weakness. ABSENT: chills, fever(s), headache(s), weight gain, weight loss Eyes: ABSENT: visual disturbances Ears: ABSENT: hearing changes Nose, Mouth, and Throat: PRESENT: sore throat. ABSENT: headache(s) Cardiovascular: PRESENT: chest pain - chest wall pain s/p pacemaker placement last week. ABSENT: dyspnea on exertion, edema, orthropnea, palpitations Respiratory: PRESENT: cough. ABSENT: dyspnea, hemoptysis, sputum Gastrointestinal: ABSENT: abdominal pain, constipation, diarrhea, hematemesis, hematochezia, nausea, vomiting Genitourinary: ABSENT: dysuria, hematuria Musculoskeletal: ABSENT: joint swelling Integumentary: ABSENT: rash, wounds Neurological: PRESENT: as per HPI, abnormal speech, dizziness, paresthesias - BLE; chronic, weakness - Bilateral lower extremity weakness; improved. ABSENT: confusion, convulsions, focal weakness, numbness, syncope, tingling, tremor(s) Psychiatric: ABSENT: anxiety, depression, homidical ideation, suicidal ideation Endocrine: ABSENT: cold intolerance, heat intolerance, polydipsia, polyuria Hematologic/Lymphatic: PRESENT: easy bruising. ABSENT: easy bleeding Physical Exam Vital Signs: Temp Pulse Resp BP Pulse Ox 97.8 F 68 15 136/53 H 100 06/13/17 13:52 06/13/17 11:46 06/13/17 14:01 06/13/17 14:00 06/13/17 14:01 General appearance: PRESENT: no acute distress, well-developed, well-nourished Head exam: PRESENT: atraumatic, normocephalic Eye exam: PRESENT: conjunctiva pink, EOMI, PERRLA. ABSENT: scleral icterus Ear exam: PRESENT: normal external ear exam Mouth exam: PRESENT: moist, tongue midline Teeth exam: PRESENT: poor dentation Neck exam: ABSENT: carotid bruit, JVD, lymphadenopathy, thyromegaly Respiratory exam: PRESENT: clear to auscultation barak, symmetrical, unlabored. ABSENT: rales, rhonchi, wheezes Cardiovascular exam: PRESENT: irregular rhythm, +S1, +S2. ABSENT: diastolic murmur, rubs, systolic murmur Pulses: PRESENT: normal carotid pulses, normal dorsalis pedis pul Vascular exam: PRESENT: normal capillary refill GI/Abdominal exam: PRESENT: normal bowel sounds, soft. ABSENT: distended, guarding, mass, organolmegaly, rebound, tenderness Rectal exam: PRESENT: deferred Extremities exam: PRESENT: full ROM. ABSENT: calf tenderness, clubbing, pedal edema Neurological exam: PRESENT: alert, awake, oriented to person, oriented to place , oriented to time, oriented to situation, CN II-XII grossly intact, other - subtle slurred speach with slight right facial droop noted only to corner of mouth at rest. ABSENT: motor sensory deficit Psychiatric exam: PRESENT: appropriate affect, normal mood. ABSENT: homicidal ideation, suicidal ideation Skin exam: PRESENT: dry, intact, warm. ABSENT: cyanosis, rash Results Impressions: Chest X-Ray 06/13/17 11:41 IMPRESSION: Chronic lung changes with no acute cardiopulmonary disease. Head CT 06/13/17 11:41 IMPRESSION: NORMAL BRAIN CT WITHOUT CONTRAST. EVIDENCE OF ACUTE STROKE: NO. Assessment & Plan - Diagnosis (1) TIA (transient ischemic attack) Qualifiers: Transient cerebral ischemia type: unspecified Qualified Code(s): G45.9 - Transient cerebral ischemic attack, unspecified Is this a current diagnosis for this admission?: Yes Plan: Pt with sudden onset weakness and slurred speech 5 days post-op cardiac pacemaker placement. Pt reports she has an underlying atrial fibrillation rhythm now on Eliquis 5 mg BID and intermittent ASA use over the last week. Symptoms have improved and, at present, she has only a very subtle abnormal speech pattern (difficult to interpret as she also has a [place] accent) and slight right facial droop. No evidence of acute ischemic stroke on Head CT; not a candidate for MRI as pt has a pacemaker CHADS2 score 5 1- Admit to [facility] on continuous cardiac monitoring 2- Continue Eliquis 3- Resume ASA 81 mg daily 4- Will consult Cardiology; appreciate guidance w/ regard to chronic anticoagulation and evaluation of new pacemaker 5- Echocardiogram 6- Obtain Carotid Doppler records from Dr. Velez's office 7- Will check lipids and advice Cardiac diet; unfortunately pt does not tolerate statins (2) Benzodiazepine dependence, continuous Is this a current diagnosis for this admission?: Yes Plan: [place] of [place] Controlled Substance Database demonstrates that the pt receives Lorazepam 1 mg #120 monthly and Triazolam 0.25 mg #45 monthly. Additionally, it is noted that the patient has been regularly prescribed Vicoprofen 7.5/200 #90. This is concerning as polypharmacy may be contributing to her generalized weakness, dizziness, and potentially her slurred speech. However, this does not account for the subtle facial droop and so TIA/CVA remains the primary concern. Pt would still benefit from weaning of benzodiazepines/opiate given her age and overall health. 1- Continue Ativan 1 mg p.o. q8 prn 2- Observe closely for s/sx withdrawal 3- Fall precautions (3) Polypharmacy Is this a current diagnosis for this admission?: Yes Plan: [place] Controlled Substance Database demonstrates that the pt receives Lorazepam 1 mg #120 monthly, Triazolam 0.25 mg #45 monthly, Vicoprofen 7.5/200 #90 monthly and recently Oxycodone 5 mg #20. Pt's home medication list also includes meclizine, metoprolol, and rhythmol; each with sedation and/or dizziness as a likely side effect. Now on Eliquis for TIA/Stroke prevention and presenting with possible stroke-like symptoms; however, this may be a presentation of medication side effects r/t polypharmacy. Will pursue stroke work up. Strongly believe that this pt would still benefit from weaning of benzodiazepines/opiates given her age and overall health. 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 Plan as above. (5) Insomnia Qualifiers: Insomnia type: unspecified Qualified Code(s): G47.00 - Insomnia, unspecified Is this a current diagnosis for this admission?: Yes - Time Time Spent: 50 to 70 Minutes Medications reviewed and adjusted accordingly: Yes Anticipated discharge: Home Within: within 24 hours
[2017-06-13] MEDS: APIXABAN 5 MG TABLET PO SCH (17:22)
[2017-06-13] MEDS: FAMOTIDINE 20 MG TABLET PO SCH (21:16)
[2017-06-13] MEDS: PROPAFENONE HCL 150 MG TABLET PO SCH (21:16)
[2017-06-13] MEDS ORDERED: LORAZEPAM 1 MG TABLET PO SCH (22:00)
[2017-06-13] MEDS: LIDOCAINE 5% (700 MG) TRANSDERMAL ADH..PATCH TP SCH (22:22)
[2017-06-14 05:01] LABS: ABSOLUTE BASOPHILS # (AUTO) 0.1 10^3/uL (0.0-0.2); ABSOLUTE EOSINOPHILS # (AUTO) 0.1 10^3/uL (0.0-0.6); ABSOLUTE LYMPHOCYTES (AUTO) 2.4 10^3/uL (0.5-4.7); ABSOLUTE MONOCYTES (AUTO) 0.7 10^3/uL (0.1-1.4); ABSOLUTE NEUT (AUTO) 2.9 10^3/uL (1.7-8.2); BASOPHILS % (AUTO) 0.8 % (0-2); LYMPHOCYTES % (AUTO) 39.5 % (13-45); MEAN CORPUSCULAR HGB CONC 34.3 g/dL (32.0-36.0); MEAN CORPUSCULAR VOLUME 99 fl (80-97); MONOCYTES % (AUTO) 11.1 % (3-13); RED BLOOD COUNT 3.52 10^6/uL (3.72-5.28); RED CELL DISTRIBUTION WIDTH 12.8 % (11.5-14.0); SEGMENTED NEUTROPHILS % (AUTO) 46.6 % (42-78); WHITE BLOOD COUNT 6.2 10^3/uL (4.0-10.5)
[2017-06-14 05:13] LABS: ANION GAP 10 (5-19); BLOOD UREA NITROGEN 12 mg/dL (7-20); CALCIUM 8.8 mg/dL (8.4-10.2); CARBON DIOXIDE 27 mmol/L (22-30); CHLORIDE 106 mmol/L (98-107); CHOLESTEROL 142.11 mg/dL (0-200); Direct HDL 55 mg/dL (>40); GLUCOSE 91 mg/dL (75-110); POTASSIUM 4.1 mmol/L (3.6-5.0); TRIGLYCERIDES 56 mg/dL (<150)
[2017-06-14 05:23] LABS: DIRECT LDL 67 mg/dL (<100)
[2017-06-14] MEDS: PROPAFENONE HCL 150 MG TABLET PO SCH ×2 (05:35→14:03)
--- NOTE | 2017-06-14 09:56 | PDOC PROGRESS REPORT ---
Subjective Progress Note for:: 06/14/17 Subjective:: Patient was seen in the office yesterday with my physician certified physician's assistant. She had presented to the office with marked general weakness, slurred speech, unsteadiness of gait. She was noted to be visibly very anxious. She had a pacemaker placed recently at [facility] for tachybradycardia episode. Twelve-lead EKG confirmed that patient was in atrial fibrillation at the time of her visit in the office. Patient however in the office denied any chest pain. She does have some chronic shortness of breath. She is quite concerned about chronic hepatitis C but her liver functions were noted to be normal. Physical Exam Vital Signs: Temp Pulse Resp BP Pulse Ox 98.2 F 88 17 127/63 H 100 06/14/17 07:21 06/14/17 07:21 06/14/17 07:21 06/14/17 07:21 06/14/17 07:21 Intake & Output 06/13/17 06/14/17 06/15/17 06:59 06:59 06:59 Intake Total 203 Balance 203 Weight 60.7 kg Exam: GENERAL: well-nourished and in no acute distress. Alert and oriented x3 HEAD: Atraumatic, normocephalic. EYES: Pupils equal round and reactive to light, extraocular movements intact, sclera anicteric, conjunctiva are normal. ENT: TMs normal, nares patent, oropharynx clear without exudates. Moist mucous membranes. No oral ulcerations or bleeding gums noted NECK: supple without lymphadenopathy. Trachea is central. No cervical or axillary lymphadenopathy noted. Carotids are 2+, JVD WNL LUNGS: Respiration seems nonlabored, no significant accessory muscle action noted. Breath sounds clear to auscultation bilaterally and equal noted. No wheezes rales or rhonchi noted. No significant dullness noted on percussion. CHEST: Palpation of the chest wall shows no significant chest wall tenderness. No other significant abnormalities noted. Pacemaker site is clean without any evidence of infection. HEART: [place], No PSH, 1/6 MARIA LUISA aortic area, 1/6 martinez systolic murmur mitral area, no rubs, no gallops. ABDOMEN: Soft, no significant tenderness appreciated, normoactive bowel sounds. No guarding, no rebound. No rigidity noted . No masses appreciated. EXTREMITIES: Pedal pulses are 1-2+, no calf tenderness noted. No clubbing or cyanosis.trace to 1+ pedal edema noted NEUROLOGICAL: Focused neurological exam showed no significant neurologic deficit. Normal speech, no focal weakness appreciated. PSYCH: Normal mood, normal affect. Judgment and insight within normal limits. SKIN: No significant ecchymosis, rash, ulcerations or signs of pruritus noted. MUSCULOSKELETAL EXAM: No significant joint swelling noted. Results Laboratory Results: 06/14/17 04:05 06/14/17 04:05 06/14/17 06/14/17 04:05 04:05 WBC 6.2 RBC 3.52 L Hgb 12.0 Hct 35.0 L MCV 99 H MCH 34.0 H MCHC 34.3 RDW 12.8 Plt Count 121 L Seg Neutrophils % 46.6 Lymphocytes % 39.5 Monocytes % 11.1 Eosinophils % 2.0 Basophils % 0.8 Absolute Neutrophils 2.9 Absolute Lymphocytes 2.4 Absolute Monocytes 0.7 Absolute Eosinophils 0.1 Absolute Basophils 0.1 Sodium 143.0 Potassium 4.1 Chloride 106 Carbon Dioxide 27 Anion Gap 10 BUN 12 Creatinine 0.70 Est GFR ( Amer) > 60 Est GFR (Non-Af Amer) > 60 Glucose 91 Calcium 8.8 Triglycerides 56 Cholesterol 142.11 LDL Cholesterol Direct 67 VLDL Cholesterol 11.0 HDL Cholesterol 55 EKG Comments: Telemetry strips reviewed shows intermittent atrial paced rhythm. However patient also noted to be in intermittent atrial fibrillation. Impressions: Chest X-Ray 06/13/17 11:41 IMPRESSION: Chronic lung changes with no acute cardiopulmonary disease. Head CT 06/13/17 11:41 IMPRESSION: NORMAL BRAIN CT WITHOUT CONTRAST. EVIDENCE OF ACUTE STROKE: NO. Assessment & Plan - Diagnosis (1) TIA (transient ischemic attack) Qualifiers: Transient cerebral ischemia type: unspecified Qualified Code(s): G45.9 - Transient cerebral ischemic attack, unspecified Is this a current diagnosis for this admission?: Yes (2) Benzodiazepine dependence, continuous Is this a current diagnosis for this admission?: Yes (3) Insomnia Qualifiers: Insomnia type: unspecified Qualified Code(s): G47.00 - Insomnia, unspecified Is this a current diagnosis for this admission?: Yes (4) Dyslipidemia Is this a current diagnosis for this admission?: Yes (5) Hepatitis C Qualifiers: Viral hepatitis chronicity: chronic Hepatic coma status: without hepatic coma Qualified Code(s): B18.2 - Chronic viral hepatitis C Is this a current diagnosis for this admission?: No (6) Paroxysmal atrial fibrillation Is this a current diagnosis for this admission?: Yes - Notes Notes: Transient ischemic attack: This is the most likely diagnosis. Most likely related to atrial fibrillation. Patient was started on Eliquis 5 mg p.o. twice daily. Side effects were discussed. Have asked patient to stop aspirin. Insomnia: I believe this is related to underlying depression. Patient will benefit from an SSRI agent. Most likely Paxil may be a good medication for this patient. Dyslipidemia: Continue statin therapy and other therapy as needed. Hepatitis C: Under satisfactory control. Paroxysmal atrial fibrillation: Currently on rate control/rhythm control and chronic anticoagulation strategy. Rate seems reasonably well controlled. - Time Time with patient: 15-25 minutes - CODE STATUS was discussed, patient remains full code. Surrogate decision-maker patient's . Multiple medical problems were addressed. More than 50% of the time spent coordinating care, discussing management plans with involved caregivers. Management plans discussed with involved personnels. Medical decision making was of moderate to high complexity, patient's has multiple comorbidities. Medications reviewed and adjusted accordingly: Yes
[2017-06-14] MEDS ORDERED: ASPIRIN 81 MG TABLET, ENT COATED PO SCH (10:00)
[2017-06-14] MEDS ORDERED: METOPROLOL SUCCINATE 50 MG TAB.SR.24H PO SCH (10:00)
[2017-06-14] MEDS: APIXABAN 5 MG TABLET PO SCH (10:24)
[2017-06-14] MEDS: LIDOCAINE 5% (700 MG) TRANSDERMAL ADH..PATCH TP SCH (10:25)
[2017-06-14] MEDS: FAMOTIDINE 20 MG TABLET PO SCH (10:25)
--- NOTE | 2017-06-14 13:48 | XCELERA REPORT ---
[address] [address] Transthoracic Echocardiogram Report Name: ERICKSON BURR Age: 76 yrs Gender: Female : 1940 Patient Status: Inpatient Patient Location: [address] [place] [address] Study Date: 06/14/2017 12:27 PM Height: 67 in Weight: 136 lb BSA: 1.7 m2 Procedure: A complete two-dimensional transthoracic echocardiogram was performed (2D, M-mode, spectral and color flow Doppler). The study was technically adequate with some images being suboptimal in quality. Reason For Study: TIA Ordering Physician: LOGAN VEGA Performed By: Adri Bowman Interpretation Summary The study was technically adequate with some images being suboptimal in quality. The left ventricular ejection fraction is normal. LV diastolic function could not be adequately assessed due to atrial fibrilation. Rapid deaccleration slope and DT of 126 ms suggest grade 3 diastolic dysfunction. There is mild concentric left ventricular hypertrophy. The left ventricle is grossly normal size. The left ventricular wall motion is normal. The right ventricle is mild to moderately dilated. The right ventricular systolic function is normal. The left atrium is mildly dilated. The right atrium is mildly dilated. There is a moderate amount of mitral regurgitation There is no mitral valve stenosis. No aortic regurgitation is present. There is no aortic valve stenosis There is a trace to mild amount of tricuspid regurgitation There is mild pulmonary hypertension by echo Right ventricular systolic pressure is estimated to be elevated at 30- 40mmHg. The aortic root is not well visualized but is probably normal size. The inferior vena cava appeared normal and decreased < 50% with respiration (RAP 10-15 mmHg) Minimal pericardial effusion. MMode/2D Measurements & Calculations RVDd: 2.6 cm LVIDd: 3.6 cm FS: 26.4 % Ao root diam: 2.9 cm IVSd: 1.1 cm LVIDs: 2.7 cm EDV(Teich): 56.2 ml LVPWd: 1.1 cm ESV(Teich): 26.7 ml Ao root area: 6.5 cm2 EF(Teich): 52.5 % Doppler Measurements & Calculations Ao V2 max: LV V1 max PG: PA V2 max: PI end-d isai: 107.0 cm/sec 1.9 mmHg 70.9 cm/sec 139.4 cm/sec Ao max P.6 mmHgLV V1 max: PA max P.6 cm/sec 2.0 mmHg TR max isai: 252.5 cm/sec TR max P.5 mmHg Left Ventricle The left ventricle is grossly normal size. There is mild concentric left ventricular hypertrophy. The left ventricular ejection fraction is normal. LV diastolic function could not be adequately assessed due to atrial fibrilation. Rapid deaccleration slope and DT of 126 ms suggest grade 3 diastolic dysfunction. The left ventricular wall motion is normal. Right Ventricle The right ventricle is mild to moderately dilated. There is normal right ventricular wall thickness. The right ventricular systolic function is normal. Atria The right atrium is mildly dilated. The left atrium is mildly dilated. Interarterial septum not well visualized and not well dopplered. Cannot comment on ASD/PFO presence. Mitral Valve There is mild mitral leaflet calcification. There is no mitral valve stenosis. There is a moderate amount of mitral regurgitation. Aortic Valve The aortic valve is grossly normal. There is no aortic valve stenosis. No aortic regurgitation is present. Tricuspid Valve The tricuspid valve is not well visualized, but is grossly normal. There is no tricuspid stenosis. There is a trace to mild amount of tricuspid regurgitation. There is mild pulmonary hypertension by echo. Right ventricular systolic pressure is estimated to be elevated at 30-40mmHg. Pulmonic Valve The pulmonic valve is not well visualized. Great Vessels The aortic root is not well visualized but is probably normal size. The inferior vena cava appeared normal and decreased < 50% with respiration (RAP 10-15 mmHg). Effusions Minimal pericardial effusion. : LOGAN VEGA > Mitch Summers
[2017-06-14] MEDS ORDERED: MAGNESIUM HYDROXIDE SUSP 30 ML UDCUP PO PRN (14:00)
[2017-06-14 15:26] VITALS: BP 119/59
--- NOTE | 2017-06-14 15:29 | PDOC DISCHARGE SUMMARY ---
General - Admit/Disc Date/PCP Admission Date/Primary Care Provider: 06/13/17 15:53 MELVIN OCHOA Discharge Date: 06/14/17 - Discharge Diagnosis (1) TIA (transient ischemic attack) Is this a current diagnosis for this admission?: Yes Summary: Patient was admitted for TIA/CVA. She presents to the emergency department with a report of sudden onset dizziness, slurred speech, generalized weakness. She was seen in her medical diagnostic radiographer's office for the above complaint and was instructed to report to the emergency department for evaluation. On arrival to the emergency department her symptoms have resolved except for a very subtle abnormal speech pattern. This was difficult to identify as the patient also has a [place] accent. Per patient and family her speech gradually improved over several hours and by that evening had return to her normal. Cardiology was consulted and echocardiogram was completed today. A carotid Doppler was done as an outpatient this year. Her Eliquis was continued, unfortunately the patient does not tolerate statins. On day of discharge, patient has returned to her normal baseline and is stable for discharge home with close follow-up by cardiology and primary care. (2) Benzodiazepine dependence, continuous Is this a current diagnosis for this admission?: Yes Summary: Patient is noted to be on Ativan 1 mg 3 times daily as well as triazolam nightly. Discussed with patient risk of continued benzodiazepine use to include dizziness, weakness, falls, memory problems. Patient is resistant to reducing dosing, stating that she has been on these medications for several years. Her Ativan was continued her outpatient schedule and she was monitored for withdrawal symptoms. (3) Polypharmacy Is this a current diagnosis for this admission?: Yes Summary: Patient's home medication list and [place] controlled substance database was reviewed. Patient was found to be on multiple medications that have sedation with dizziness as a side effect. Her constellation of symptoms likely represents a TIA, however, polypharmacy likely is contributing to her generalized weakness and certainly is increasing risk for accidental overdose and falls. Her oxycodone and [place] was held overnight. Ativan was continued at her normal dose and schedule. The patient I did discuss the importance of reevaluating all medications with her primary care provider and to strongly consider dose reduction of benzodiazepine and opiate medications. Recommend that she discuss with her primary care the option of initiating a long-term antidepressant with generalized anxiety indications. (4) Paced rhythm on phototypesetting equipment monitor Is this a current diagnosis for this admission?: Yes (5) Insomnia Is this a current diagnosis for this admission?: Yes - Additional Information Resuscitation Status: Full Code Discharge Diet: Cardiac Discharge Activity: Activity As Tolerated, Balance Activity w/Rest Home Medications: Lidocaine [Lidoderm] 2 each TP Q12 06/13/17 Lorazepam [Ativan 1 mg Tablet] 1 mg PO Q8 06/13/17 Metoprolol Succinate [Toprol Xl 50 mg Tab.sr] 50 mg PO DAILY 06/13/17 Oxycodone HCl [Oxy-Ir 5 mg Tablet] 5 mg PO Q4HP PRN 06/13/17 Polyethylene Glycol 3350 [Miralax Powder 17 gm/Packet] 1 packet PO DAILYP PRN Propafenone HCl [Rythmol 150 mg Tablet] 150 mg PO Q8 06/13/17 Triazolam 0.375 mg PO HSP PRN 06/13/17 History of Present Illness History of Present Illness: ERICKSON BURR is a 76 year old female presented to the ED today with report of stroke-like symptoms that occurred early this morning. She is seen resting on the ED stretcher comfortably with family members present. Pt reports that she woke at approximately 6 am to take some of her medications; rhythmol, ativan and aspirin. She states at that time she felt fine and did not note facial droop, slurred speech or weakness. She went back to sleep and woke again around 8 am and took oxycodone and mucinex. She states that within a few minutes of taking these medications, she experienced generalized weakness and dizziness. She attempted to contact her pacemaker company for a rhythm check but the sales promotion representative could not understand her. She then alerted her who reports that the pt had delayed and slurred speech. He did not note any confusion, facial droop, or focal weaknesses at that time. They then contacted Dr. Ochoa's office for guidance and were instructed to seek evaluation in the ED. Currently, pt reports feeling slightly fatigued and does comment on a slight slurred speech which her endorses. She denies bean, dizziness, extremity weakness, chest pain, palpitations, and dyspnea. Of note, pt was discharged home from [facility] days ago after having a pacemaker put in and was started on Eliquis. Pt states that she was instructed to stop her ASA at that time and so had not had any up until this morning when she took a dose "out of habit." She has been referred to the hospitalist service for TIA/CVA work up. Physical Exam Vital Signs: Temp Pulse Resp BP Pulse Ox 97.9 F 104 H 18 129/66 H 99 06/14/17 12:05 06/14/17 12:05 06/14/17 12:05 06/14/17 12:05 06/14/17 12:05 Intake & Output 06/13/17 06/14/17 06/15/17 06:59 06:59 06:59 Intake Total 203 200 Balance 203 200 Weight 60.7 kg General appearance: PRESENT: no acute distress, well-developed, well-nourished Head exam: PRESENT: atraumatic, normocephalic Eye exam: PRESENT: conjunctiva pink, EOMI, PERRLA. ABSENT: scleral icterus Ear exam: PRESENT: normal external ear exam Mouth exam: PRESENT: moist, tongue midline Teeth exam: PRESENT: poor dentation Neck exam: ABSENT: carotid bruit, JVD, lymphadenopathy, thyromegaly Respiratory exam: PRESENT: clear to auscultation barak. ABSENT: rales, rhonchi, wheezes Cardiovascular exam: PRESENT: irregular rhythm, +S1, +S2. ABSENT: diastolic murmur, rubs, systolic murmur Pulses: PRESENT: normal dorsalis pedis pul Vascular exam: PRESENT: normal capillary refill GI/Abdominal exam: PRESENT: normal bowel sounds, soft. ABSENT: distended, guarding, mass, organolmegaly, rebound, tenderness Rectal exam: PRESENT: deferred Extremities exam: PRESENT: full ROM. ABSENT: calf tenderness, clubbing, pedal edema Neurological exam: PRESENT: alert, awake, oriented to person, oriented to place , oriented to time, oriented to situation, CN II-XII grossly intact. ABSENT: motor sensory deficit Psychiatric exam: PRESENT: appropriate affect, normal mood. ABSENT: homicidal ideation, suicidal ideation Skin exam: PRESENT: dry, intact, warm. ABSENT: cyanosis, rash Results Laboratory Results: 06/14/17 04:05 06/14/17 04:05 06/14/17 06/14/17 04:05 04:05 WBC 6.2 RBC 3.52 L Hgb 12.0 Hct 35.0 L MCV 99 H MCH 34.0 H MCHC 34.3 RDW 12.8 Plt Count 121 L Seg Neutrophils % 46.6 Lymphocytes % 39.5 Monocytes % 11.1 Eosinophils % 2.0 Basophils % 0.8 Absolute Neutrophils 2.9 Absolute Lymphocytes 2.4 Absolute Monocytes 0.7 Absolute Eosinophils 0.1 Absolute Basophils 0.1 Sodium 143.0 Potassium 4.1 Chloride 106 Carbon Dioxide 27 Anion Gap 10 BUN 12 Creatinine 0.70 Est GFR ( Amer) > 60 Est GFR (Non-Af Amer) > 60 Glucose 91 Calcium 8.8 Triglycerides 56 Cholesterol 142.11 LDL Cholesterol Direct 67 VLDL Cholesterol 11.0 HDL Cholesterol 55 Impressions: Chest X-Ray 06/13/17 11:41 IMPRESSION: Chronic lung changes with no acute cardiopulmonary disease. Head CT 06/13/17 11:41 IMPRESSION: NORMAL BRAIN CT WITHOUT CONTRAST. EVIDENCE OF ACUTE STROKE: NO. Qualifiers PATEINT BEING DISCHARGED WITH ANY OF THE FOLLOWING DIAGNOSIS?: No
== END 2017-06-14 16:02 | disposition home or self-care (01) ==
LOC: ER 11:38 → UNDOADMOB 15:11 → EH 15:11 → 3N 17:52
PROVIDERS: ADMIT Internal Medicine; ATTEND Internal Medicine
DX: G45.9 Transient cerebral ischemic attack, unspecified (principal); F13.20 Sedative, hypnotic or anxiolytic dependence, uncomplicated; G47.00 Insomnia, unspecified; R47.81 Slurred speech; R53.83 Other fatigue; R07.89 Other chest pain; G89.18 Other acute postprocedural pain; Z95.0 Presence of cardiac pacemaker; B18.2 Chronic viral hepatitis C; J02.9 Acute pharyngitis, unspecified; R06.02 Shortness of breath; E78.5 Hyperlipidemia, unspecified; I48.0 Paroxysmal atrial fibrillation; Z79.899 Other long term (current) drug therapy; Z79.891 Long term (current) use of opiate analgesic; Z90.49 Acquired absence of other specified parts of digestive tract; Z82.49 Family history of ischemic heart disease and other diseases of the circulatory system
CPT/HCPCS: 93005; 99285; 36415 ×2; 82553; 82550; 85025 ×2; 85610; 85730; 80048; 80053; 84484; 80061; 93306; 71010; 70450; 93010; A9270 ×8; J3490 ×2

== ENCOUNTER 2017-11-23 08:24 | Day surgery (SDC) | payer MEDICARE, OTHER ==
[~2017-11-23 08:24] MED LIST: DIPHENHYDRAMINE HCL 50 MG/ML VIAL ONE; EPINEPHRINE INJ 1 MG/10 ML DISP.SYRIN ONE; FENTANYL CITRATE INJ/PF 100 MCG/2 ML AMPUL ONE; FLUMAZENIL INJ 0.5 MG/5 ML VIAL ONE; GLUCAGON,HUMAN RECOMB 1 MG INJ ONE; MIDAZOLAM 2 MG/2 ML INJ ONE; NALOXONE HCL INJ/PF 0.4 MG/1 ML SDV ONE; ONDANSETRON HCL INJ/PF 4 MG/2 ML SDV ONE
[2017-11-23] MEDS: MIDAZOLAM 2 MG/2 ML INJ ONE ×3 (08:58→09:04)
--- NOTE | 2017-11-23 09:12 | Operative Report ---
Operative Report DATE OF SURGERY: 11/23/17 Operative Report: The risks benefits and alternatives of the procedure explained to the patient in detail and informed consent is obtained.A GIF Olympus video scope was inserted into the patient's mouth and hypopharynx, the esophagus is identified intubated and insufflated, the scope was then advanced through the esophagus stomach and duodenum, retroflexion maneuver is done, the esophagus stomach and first and second portions of the duodenum examined PREOPERATIVE DIAGNOSIS: Dysphagia POSTOPERATIVE DIAGNOSIS: Schatzki's ring status post breakage. Hiatal hernia. Gastritis status post biopsy rule out Helicobacter pylori OPERATION: EGD with biopsy SURGEON: SURENDRA BAXTER ANESTHESIA: Moderate Sedation - 3 mg of Versed, 25 mcg of fentanyl. Conscious sedation monitoring time 30 minutes. TISSUE REMOVED OR ALTERED: As noted above. COMPLICATIONS: None. ESTIMATED BLOOD LOSS: None. INTRAOPERATIVE FINDINGS: As noted above. PROCEDURE: Patient tolerated procedure well. No immediate postprocedure comp occasions are noted. Patient discharged in good condition. Discharge date 11/23/2017. Discharge diet: Regular. Discharge activity: Regular. 2-3 week follow-up to discuss findings. Patient is instructed call the office or proceed to the emergency room should there be any further problems or questions. We will went pathology.
[2017-11-23 10:34] VITALS: BP 107/72
== END 2017-11-23 10:12 | disposition home or self-care (01) ==
LOC: END 08:24
PROVIDERS: ATTEND Internal Medicine Gastroenterology
PROC: 0DB68ZX Excision of Stomach, Via Natural or Artificial Opening Endoscopic, Diagnostic (ICD-10-PCS; principal; 2017-11-23 09:00)
DX: K22.2 Esophageal obstruction (principal); K44.9 Diaphragmatic hernia without obstruction or gangrene; K29.70 Gastritis, unspecified, without bleeding; M19.90 Unspecified osteoarthritis, unspecified site; Z79.01 Long term (current) use of anticoagulants; Z86.14 Personal history of Methicillin resistant Staphylococcus aureus infection; Z95.0 Presence of cardiac pacemaker; Z79.899 Other long term (current) drug therapy
CPT/HCPCS: 43239; 88305 ×2; J2250; J3010; J0171; J1200; J1610; J2310; J2405; J3490

== ENCOUNTER → 2017-12-07 | Outpatient (CLI) | payer MEDICARE, OTHER ==
--- NOTE | 2017-12-07 15:21 | RADIOLOGY REPORT (SQ) ---
EXAM DESCRIPTION: BONE SURVEY COMPLETE COMPLETED DATE/TIME: 12/07/2017 3:02 pm REASON FOR STUDY: C41.9 MALIGNANT NEOPLASM OF BONE AND ARTICULAR CARTILAGE, UNSPECIFIED C41.9 MALIG NANT NEOPLASM OF BONE AND ARTICULAR CARTILAGE, UN M81.0 AGE-RELATED OSTEOPOROSIS W/O CURRENT PATHOLO GICAL FRAC COMPARISON: Bone densitometry 12/07/2017 Whole-body bone scan 10/06/2016 CT thoracic spine 10/18/2015 TECHNIQUE: Images of the axial and proximal appendicular skeleton are obtained, along with lateral s kull and frontal chest films. LIMITATIONS: None. FINDINGS: AP CHEST: No bony findings. Lungs are clear. No cardiomegaly. Pacemaker present. LATERAL SKULL: No worrisome bone lesions. AP BOTH HUMERI: No worrisome bone lesions. TWO-VIEW LUMBAR SPINE: Subacute or chronic L2 upper endplate compression with 25% loss of height and upper endplate bony sclerosis TWO-VIEW THORACIC SPINE: Old T7 kyphoplasty. TWO-VIEW CERVICAL SPINE: No worrisome bone lesions. AP PELVIS: No worrisome bone lesions. AP BOTH FEMURS: No worrisome bone lesions. OTHER: Diffuse osteoporosis. IMPRESSION: No lytic or blastic lesions. Overall decreased bone density. Thoracic and lumbar compr ession deformities TECHNICAL DOCUMENTATION: JOB ID: [id number] [employer]- All Rights Reserved Reading location - IP/workstation name: [email or web address]
--- NOTE | 2017-12-07 15:22 | WOMENS IMAGING REPORT ---
EXAM DESCRIPTION: BONE DENSITY HIP/SPINE COMPLETED DATE/TIME: 12/07/2017 2:46 pm REASON FOR STUDY: OSTEOPROSIS; M81.0 C41.9 MALIGNANT NEOPLASM OF BONE AND ARTICULAR CARTILAGE, UN M 81.0 AGE-RELATED OSTEOPOROSIS W/O CURRENT PATHOLOGICAL FRAC COMPARISON: Skeletal survey same date TECHNIQUE: Dual-Energy X-ray Absorptiometry (DEXA) of the AP Spine and Hip. LIMITATIONS: None. FINDINGS: LUMBAR SPINE: The bone mineral density (BMD) measured from L1-L4 in the AP projection correlates with a T-score of -4.2, which is osteoporotic as defined by the World Health Organization. HIP: The bone mineral density (BMD) measured in the left femoral neck at the hip correlates with a T-score of -3.4, which is osteoporotic as defined by the World Health Organization. IMPRESSION: 1. LUMBAR SPINE: Osteoporotic 2. HIP: Osteoporotic COMMENT: The World Health Organization defines low BMD as follows: T-score: Normal: Greater than -1.0 Osteopenia: Between -1.0 and -2.5 Osteoporosis: Less than -2.5 without fractures Established osteoporosis: Less than -2.5 with fractures In general, you may wish to consider: Diagnosis Treatment Follow-up DEXA Normal BMD Prevention 2-3 years Osteopenia Prevention/Therapy 1-2 years Osteoporosis Therapy Yearly TECHNICAL DOCUMENTATION: JOB ID: [id number] [employer]16[employer]- All Rights Reserved Reading location - IP/workstation name: [email or web address]
== END ==
LOC: WI 13:51
PROVIDERS: ATTEND Internal Medicine
DX: C41.9 Malignant neoplasm of bone and articular cartilage, unspecified (principal); M81.0 Age-related osteoporosis without current pathological fracture
CPT/HCPCS: 77075; 77080

== ENCOUNTER 2018-06-12 09:17 | Day surgery (SDC) | payer MEDICARE, OTHER ==
[~2018-06-12 09:17] MED LIST changes: -DIPHENHYDRAMINE HCL 50 MG/ML VIAL ONE
--- NOTE | 2018-06-12 10:15 | Operative Report ---
Operative Report DATE OF SURGERY: 06/12/18 Operative Report: The risks benefits and alternatives of the procedure explained to the patient in detail and informed consent is obtained.A GIF Olympus video scope was inserted into the patient's mouth and hypopharynx ,the esophagus is identified intubated and insufflated, the scope was then advanced through the esophagus stomach and duodenum ,retroflexion maneuver is done, the esophagus stomach and first and second portions of the duodenum examined PREOPERATIVE DIAGNOSIS: Dysphagia. Patient has stopped her Eliquis for 2 days prior to the procedure POSTOPERATIVE DIAGNOSIS: Schatzki's ring which is broken with biopsies. Hiatal hernia. Gastritis status post biopsy OPERATION: EGD with biopsy SURGEON: SURENDRA BAXTER ANESTHESIA: Other - Patient chose to do procedure unsedated TISSUE REMOVED OR ALTERED: As noted above COMPLICATIONS: None. ESTIMATED BLOOD LOSS: None. INTRAOPERATIVE FINDINGS: As noted above. PROCEDURE: Patient tolerated the procedure well. No immediate postprocedure complications are noted. Patient discharged in good condition. Discharge date 06/12/2018. Discharge diet: Regular. Discharge activity: Regular. 2-3-week follow-up to discuss findings. Patient is instructed to call the office or proceed to the emergency room should there be any further problems or questions. Wait on the pathology.
[2018-06-12 11:13] VITALS: BP 124/52
== END 2018-06-12 11:00 | disposition home or self-care (01) ==
LOC: END 09:17
PROVIDERS: ATTEND Internal Medicine Gastroenterology
DX: K22.2 Esophageal obstruction (principal); K44.9 Diaphragmatic hernia without obstruction or gangrene; K29.50 Unspecified chronic gastritis without bleeding; M19.90 Unspecified osteoarthritis, unspecified site; K21.9 Gastro-esophageal reflux disease without esophagitis; Z79.01 Long term (current) use of anticoagulants; Z79.899 Other long term (current) drug therapy; Z88.8 Allergy status to other drugs, medicaments and biological substances; Z88.2 Allergy status to sulfonamides
CPT/HCPCS: 43239; 88305; 88342; J0171; J1610; J2250; J2310; J2405; J3010; J3490

== ENCOUNTER 2018-09-25 09:44 | Day surgery (SDC) | payer MEDICARE, OTHER ==
[2018-09-25] MEDS ORDERED: FENTANYL CITRATE INJ/PF 100 MCG/2 ML AMPUL ONE (10:07)
[2018-09-25] MEDS ORDERED: ONDANSETRON HCL INJ/PF 4 MG/2 ML SDV ONE (10:07)
[2018-09-25] MEDS ORDERED: MIDAZOLAM 2 MG/2 ML INJ ONE (10:08)
[2018-09-25] MEDS ORDERED: GLUCAGON,HUMAN RECOMB 1 MG INJ ONE (10:08)
[2018-09-25] MEDS ORDERED: EPINEPHRINE INJ 1 MG/10 ML DISP.SYRIN ONE (10:08)
[2018-09-25] MEDS ORDERED: NALOXONE HCL INJ/PF 0.4 MG/1 ML SDV ONE (10:08)
[2018-09-25] MEDS ORDERED: FLUMAZENIL INJ 0.5 MG/5 ML VIAL ONE (10:08)
[2018-09-25 11:31] VITALS: BP 126/50
--- NOTE | 2018-09-25 11:50 | Operative Report ---
Operative Report DATE OF SURGERY: 09/25/18 Operative Report: The risks benefits and alternatives of the procedure explained to the patient in detail and informed consent is obtained.A GIF Olympus video scope was inserted into the patient's mouth and hypopharynx, the esophagus is identified intubated and insufflated ,the scope was then advanced through the esophagus stomach and duodenum, retroflexion maneuver is done, the esophagus stomach and first and second portions of the duodenum examined. PREOPERATIVE DIAGNOSIS: Dysphagia POSTOPERATIVE DIAGNOSIS: Schatzki's ring which is broken. Hiatal hernia. Gastritis status post biopsy rule out Helicobacter pylori OPERATION: EGD with biopsy SURGEON: SURENDRA BAXTER ANESTHESIA: Other - None. Patient chose to do procedure and sedated. TISSUE REMOVED OR ALTERED: As noted above. COMPLICATIONS: None. ESTIMATED BLOOD LOSS: None. INTRAOPERATIVE FINDINGS: As noted above. PROCEDURE: Patient tolerated the procedure well. No immediate postprocedure complications are noted. Patient discharged in good condition. Discharge date 09/25/2018. Discharge diet: Regular. Discharge activity: Regular. 2-3-week follow-up to discuss findings. Patient is instructed to call the office or proceed to the emergency room should there be any further proximal questions. Wait on the pathology.
== END 2018-09-25 11:34 | disposition home or self-care (01) ==
LOC: END 09:44
PROVIDERS: ATTEND Internal Medicine Gastroenterology
DX: K22.9 Disease of esophagus, unspecified (principal); K44.9 Diaphragmatic hernia without obstruction or gangrene; K29.50 Unspecified chronic gastritis without bleeding; Z79.899 Other long term (current) drug therapy; Z79.01 Long term (current) use of anticoagulants; Z88.6 Allergy status to analgesic agent; Z88.2 Allergy status to sulfonamides; Z88.8 Allergy status to other drugs, medicaments and biological substances
CPT/HCPCS: 43239; 88305; 88342; J0171; J1610; J2250; J2310; J2405; J3010; J3490